=== PATIENT | female | born 1975 | race Hispanic/Latino ===

== ENCOUNTER 2017-12-27 17:57 | Emergency (ER) | payer MEDICAID, OTHER ==
[2017-12-27 17:57] VITALS: BMI 24.2
[2017-12-27 18:06] VITALS: RESP 18; O2SAT 100
[2017-12-27 19:14] VITALS: BP 128/78; PULSE 78; TEMP 97
--- NOTE | 2017-12-27 19:14 | ED PDOC ---
HPI: Psych/Substance Abuse Time Seen by Provider: 12/27/17 17:59 Chief Complaint (Nursing): Psychiatric Evaluation Chief Complaint (Provider): Anxiety - SI last night, none now History Per: Patient History/Exam Limitations: no limitations Onset/Duration Of Symptoms: Days Modifying Factor(s): None Additional Complaint(s): 42 yo female with history of heroin abuse presents feeling anxious and "manic". Pt was discharged from [facility] on 12/24/17. Pt states she has been clean from heroin since 12/07/17 and went to detox on 12/09/17. Past Medical History Reviewed: Historical Data, Nursing Documentation, Vital Signs Vital Signs: Last Vital Signs Temp 98.5 F 12/27/17 18:00 Pulse 91 H 12/27/17 18:00 Resp 18 12/27/17 18:00 BP 158/88 H 12/27/17 18:00 Pulse Ox 100 12/27/17 18:00 - Medical History PMH: Anxiety, Depression Denies: Diabetes, Hepatitis, HIV, HTN, Seizures, Sexually Transmitted Disease - Surgical History Surgical History: No Surg Hx - Family History Family History: States: No Known Family Hx - Immunization History Hx Tetanus Toxoid Vaccination: No Hx Influenza Vaccination: No Hx Pneumococcal Vaccination: No - Home Medications Home Medications: Ambulatory Orders Medication Instructions Recorded Chlorpheniramine Maleate 4 mg PO BID 12/19/17 [Aller-Chlor] Escitalopram [Lexapro] 20 mg PO DAILY 12/19/17 Guaifen/Dextromethorphan/PE 10 ml PO DAILY 12/19/17 [Robafen Cf Liquid] Indomethacin [Indocin] 50 mg PO TID 12/19/17 Divalproex [Depakote DR] 250 mg PO QPM #30 tcp 12/24/17 Divalproex [Depakote DR] 500 mg PO BID #60 tcp 12/24/17 Gabapentin [Neurontin] 400 mg PO TID #90 cap 12/24/17 QUEtiapine [SEROquel] 300 mg PO HS #30 tab 12/24/17 traZODone [Desyrel] 50 mg PO HS PRN #30 tab 12/24/17 - Allergies Allergies/Adverse Reactions: Allergies Allergy/AdvReac Type Severity Reaction Status Date / Time No Known Allergies Allergy Unverified 12/19/17 12:20 Review of Systems ROS Statement: Except As Marked, All Systems Reviewed And Found Negative Constitutional: Negative for: Fever, Chills Gastrointestinal: Negative for: Nausea, Vomiting, Abdominal Pain Psych: Negative for: Suicidal ideation Physical Exam - Reviewed Nursing Documentation Reviewed: Yes Vital Signs Reviewed: Yes - Physical Exam Appears: Positive for: Well, Non-toxic, No Acute Distress Head Exam: Positive for: ATRAUMATIC, NORMAL INSPECTION, NORMOCEPHALIC Skin: Positive for: Normal Color, Warm, DRY Eye Exam: Positive for: Normal appearance ENT: Positive for: Normal ENT Inspection Neck: Positive for: Normal, Painless ROM Cardiovascular/Chest: Positive for: Regular Rate, Rhythm Respiratory: Positive for: CNT, Normal Breath Sounds Gastrointestinal/Abdominal: Positive for: Normal Exam, Bowel Sounds, Soft Back: Positive for: Normal Inspection Extremity: Positive for: Normal ROM Neurologic/Psych: Positive for: Alert, Oriented - ECG O2 Sat by Pulse Oximetry: 100 Medical Decision Making Medical Decision Making: Crisis evaluation completed. Disposition - Clinical Impression Clinical Impression: Anxiety - Patient ED Disposition Is Patient to be Admitted: No Counseled Patient/Family Regarding: Diagnosis, Need For Followup - Disposition Disposition: Routine/Home Disposition Time: 19:14 Condition: GOOD Instructions: Anxiety, Adult (DC)
== END 2017-12-27 19:19 | disposition home or self-care (01) ==
LOC: H.ER 17:57
DX: F41.9 Anxiety disorder, unspecified (principal)